=== PATIENT | female | born 1940 | race Caucasian/White ===

== ENCOUNTER 2017-05-08 18:40 | Emergency (ER) | payer MEDICARE, OTHER ==
[~2017-05-08 18:40] MED LIST: ATEN25TA PO; CALC-190 PO; CHOL200025 PO; GARL1CAP7 PO; MULT-1018 PO; OMEG1CAP56 PO; OXYC5TAB72 PO; POLY17PO6 PO; PROP225T PO; SELE50TA PO; WARF5TAB7 PO
[2017-05-08 18:45] VITALS: BP 150/57; PULSE 72; RESP 16; O2SAT 97
--- NOTE | 2017-05-08 19:10 | ED.REPORT ---
HPI-Extremity Problem Upper Date of Service May 08, 2017 ED Provider: Dr. Donavon Ricks The patient is a 76 year old female with a history of A-fib on Coumadin who presents to the ED c/o left hand swelling and left arm pain onset increasing in severity since she broke the arm 5 days ago. Pt's arm is in a sling and she has surgery planned in the next week. She is taking hydrocodone for pain. She denies any other symptoms including nausea, vomiting, diarrhea, fever, chills, SOB, chest pain, and abdominal pain. Nursing Notes Stated Complaint: BROKEN LEFT ARM SWELLING Chief Complaint: Extremity Trauma Nursing Notes Reviewed: Yes Allergies: Coded Allergies: Cephalosporins (Verified Allergy, Severe, 03/07/15) Penicillins (Verified Allergy, Severe, Rash, 03/07/15) cephalexin (Verified Allergy, Severe, turned blue, lost balance, 03/07/15) verapamil (Verified Allergy, Unknown, 03/07/15) Scheduled Atenolol (Atenolol) 25 Mg Tablet 25 MG PO HS Calcium Carb&Cit/Mag12/Vit D3 (Calcium 500 mg Tablet) 1 Each Tablet 1 EACH PO DAILY Cholecalciferol (Vitamin D3) (Vitamin D3) 2,000 Unit Tablet 2,000 UNIT PO DAILY Garlic (Garlic) 1 Each Capsule 1 EACH PO DAILY Multivitamin (Multi Vitamin Daily) 1 Each Tablet 1 EACH PO DAILY [place]-3 Fatty Acids/Fish Oil ([place] 3 1,000 mg Softgel) 1 Each Capsule 1 EACH PO DAILY Polyethylene Glycol 3350 (Miralax) 17 Gm Powd.pack 17 GM PO DAILY Propafenone (Propafenone) 225 Mg Tablet 225 MG PO Q8H Selenium (Selenium) 50 Mcg Tablet 100 MCG PO DAILY Warfarin Sodium (Warfarin Sodium) 5 Mg Tablet 5 MG PO DAILY Scheduled PRN oxyCODONE (oxyCODONE) 5 Mg Tablet 2.5-5 MG PO Q4H PRN PRN For Moderate Pain General Time Seen by MD: 19:10 Chief Complaint Arm injury left Hx Obtained From: Patient Arrived By: Walk-in Onset Occurred: Yesterday Symptom Duration: Since onset Caused by: Accidental Location: : Arm left Quality: Painful Severity: Current: Moderate Recent Healthcare: Recent doctor visit Similar Sx Previous: Yes Past Medical History Past Medical History A-fib on Coumadin HTN Reports: Cancer Past Surgical History Denies Smoking History Never Smoker Social History Alcohol Use: Denies alcohol use Drug Use: Denies drug use Other Social History: Ambulatory Status Independent Review of Systems Constitutional: Denies: Chills, Fever Musculoskeletal: Reports: Extremity pain, Extremity swelling Complete sys rev & neg: except as marked. Respiratory: Denies: Shortness of breath Cardiovascular: Denies: Chest pain GI: Denies: Abdominal pain, Diarrhea, Nausea, Vomiting Physical Exam Initial Vital Signs Vital Signs (First) Date Time Temp Pulse Resp B/P Pulse Ox O2 Delivery O2 Flow Rate FiO2 05/08/17 18:45 36.7 72 16 150/57 97 Room Air Initial VS: Reviewed General/Constitutional: Awake, Alert, Cooperative Left Shoulder: Positive: Erythema present, Swelling present..., Tenderness present... no signs of DVT no signs of compartment syndrome Right Thumb: Positive: Swelling present... mild non pitting edema of left hand Skin: Atraumatic, Color NL, No rash Head / Eyes: Atraumatic, Normocephalic Lower Extremity / Pelvis / MS: Atraumatic, Full range of motion, No deformity Ankle / Foot: Atraumatic, Full range of motion, No deformity Interpretation & Diagnostics Lab Results Interpretation Result Diagram: 05/08/17193405/08/171934 Test 05/08/17 19:35 White Blood Count 8.2th/mm3 (3.8-10.1) Red Blood Count 3.36mil/mm3 (3.90-5.20) Hemoglobin 10.1g/dL (12.0-15.6) Hematocrit 31.7% (35.0-46.0) Mean Corpuscular Volume 94.3fL (81-100) Mean Corpuscular Hemoglobin 30.1pg (27.0-35.0) Mean Corpuscular Hemoglobin Concent 31.9% (32.0-37.0) Red Cell Distribution Width 13.9% (12.3-15.4) Platelet Count 340bil/L (150-400) Neutrophils (%) (Auto) 64.0% (40-74) Lymphocytes (%) (Auto) 21.4% (14-46) Monocytes (%) (Auto) 11.9% (4-12) Eosinophils (%) (Auto) 1.9% (0-5) Basophils (%) (Auto) 0.4% (0-3) Prothrombin Time 10.9sec (8.1-12.5) Prothromb Time International Ratio 1.02ratio Sodium Level 140mEq/L (134-144) Potassium Level 4.2mEq/L (3.5-5.2) Chloride Level 102mEq/L (97-108) Carbon Dioxide Level 26mmol/L (18-29) Blood Urea Nitrogen 36mg/dL (8-27) Creatinine 1.05mg/dL (0.57-1.00) Estimat Glomerular Filtration Rate 73mL/min (>59) Glucose Level 174mg/dL (60-99) Calcium Level 8.9mg/dL (8.5-10.1) Total Bilirubin 0.6mg/dL (0.0-1.2) Aspartate Amino Transf (AST/SGOT) 19U/L (0-50) Alanine Aminotransferase (ALT/SGPT) 15U/L (0-32) Alkaline Phosphatase 62U/L (25-165) Total Protein 6.7g/dL (6.4-8.4) Albumin 3.7g/dL (3.4-5.0) X-Ray Interpretation Xray Interpretation: LEFT HUMERUS X-RAY IMPRESSION: Humeral head/neck fracture not significantly changed.. Dictated by: Marshall Fung M.D. on 05/08/2017 at 19:45 Approved by: Marshall Fung M.D. on 05/08/2017 at 19:46 X-Ray Ordered: Humerus left Interpretation / Wet Read by: Interpret - Radiologist Re-Eval/Medical Decision Med Decision/Clinical Course X-ray is not significantly changed. Discharged with Percocet. There is subcutaneous hematoma based on the ecchymosis. The hand swelling I expect is the fact that she has a broken shoulder hands in an immobilizer. I taken back she has a proximal humerus fracture. She is scheduled to see her surgeon tomorrow. She has been off her warfarin. Her INR is normal. She felt better with Percocet. No signs of compartment syndrome. No signs of DVT. No signs of acute arterial insufficiency. Follow-up outpatient clearly indicated. Routine opiate warnings given Re-Evaluation/Progress : Time of Eval: 20:55 Patient Status: Pain improved Re-Evaluation/Progress Note: Pt rechecked. X-ray is not significantly changed. Discharged with Percocet. Counseled Regarding: Diagnosis, Lab results, Need for follow-up, When/why to return to ED Discharge & Departure Impression: Primary Impression: Fracture of left upper extremity Encounter type: initial encounter Fracture type: closed Qualified Code: S42.302A - Unspecified fracture of shaft of humerus, left arm, initial encounter for closed fracture Additional Impression: Hematoma Disposition: Home Discharge Condition All VS Reviewed: Yes Condition: Stable Additional Instructions: Thank you for entrusting us with your care today. I am sending you home with Percocet for pain. Take 1-2 every 6 hrs as needed for severe pain. Do not drive or drink alcohol consume acetaminophen for taking Percocet. Return to the Emergency Department if you experience any new or worsening symptoms. I hope you feel better soon. Best of luck with your operation! The swelling is from a hematoma in your arm. This is from the fracture and U being on Coumadin. Her INR is now normal. Her labs show your little dehydrated mildly anemic. Take a copy of her labs with you when you follow-up with her surgeon tomorrow. Stop taking the hydrocodone. Take the Percocet as prescribed. You may want to take a stool softener while taking the Percocet. Return if any problems or any new or worsening symptoms. Referrals: Javi Wheeler MD (PCP) [place] Attestation Portion of this note were transcribed by Enid Mensah. I, Dr. Ricks, personally performed the history, physical exam, and medical decision-making: I reviewed and confirmed the accuracy for the information in the transcribed note. Signed by: kristyn Iraheta, 05/08/17 2200 copies to: Javi Wheeler MD, Todd P DO May 08, 2017 19:10 Enid Mensah May 08, 2017 20:18
[2017-05-08 19:42] LABS: BASOPHILS % (AUTO) 0.4 % (0-3); EOSINOPHILS % (AUTO) 1.9 % (0-5); MONOCYTES % (AUTO) 11.9 % (4-12); Mean Corpuscular Hemoglobin 30.1 pg (27.0-35.0); Mean Corpuscular Volume 94.3 fL (81-100); Platelet Count 340 bil/L (150-400)
--- NOTE | 2017-05-08 19:47 | DRSVH ---
PROCEDURE: X-RAY LEFT HUMERUS, MINIMUM TWO VIEWS ([id number]) INDICATIONS: recent fracture, more swelling TECHNIQUE: 2 views of the humerus were acquired. COMPARISON: [facility], , SHOULDER MINIMUM 2 VIEW LEFT, 05/03/2017, 9:33. FINDINGS: Bones: There is a markedly displaced comminuted fracture of the humeral head and neck. Soft tissues: No suspicious soft tissue calcifications. IMPRESSION: Humeral head/neck fracture not significantly changed.. Dictated by: Marshall Fung M.D. on 05/08/2017 at 19:45 Approved by: Marshall Fung M.D. on 05/08/2017 at 19:46
[2017-05-08 19:59] LABS: INR 1.02 ratio
[2017-05-08] MEDS ORDERED: _oxyCODONE/APAP 5-325 mg Tablet PO PRN (20:15)
[2017-05-08] MEDS ORDERED: HYDROmorphone 0.5 mg/0.5 mL iSecure Syringe IVPUSH PRN (20:15)
[2017-05-08 20:44] VITALS: BP 134/71; PULSE 68; RESP 20; O2SAT 98
[2017-05-08 21:18] VITALS: BP 145/63; PULSE 65; RESP 20; O2SAT 96
== END 2017-05-08 21:18 | disposition home or self-care (01) ==
LOC: SED 18:40
DX: S42.302A Unspecified fracture of shaft of humerus, left arm, initial encounter for closed fracture (principal); X58.XXXA Exposure to other specified factors, initial encounter; Y93.9 Activity, unspecified; Y92.9 Unspecified place or not applicable; Y99.9 Unspecified external cause status; I10 Essential (primary) hypertension; Z79.01 Long term (current) use of anticoagulants; Z85.9 Personal history of malignant neoplasm, unspecified; Z88.0 Allergy status to penicillin; Z88.1 Allergy status to other antibiotic agents; Z88.8 Allergy status to other drugs, medicaments and biological substances
CPT/HCPCS: 36415; 73060; 80053; 85025; 85610; 96374; 99284; J1170